=== PATIENT | female | born 2000 | race Caucasian/White ===

== ENCOUNTER 2023-09-09 22:34 | Inpatient (IN) | payer OTHER ==
[~2023-09-09] VITALS: Ht 167.6 cm; Wt 64.9 kg
[2023-09-09] MEDS ORDERED: NS 1,000 ML IV ONE (23:05)
[2023-09-09] MEDS ORDERED: CHARCOAL ACTIVATED LIQUID 25GM/120ML BTL PO ONE (23:05)
[2023-09-09] MEDS ORDERED: SODIUM BICARBONATE 8.4% INJ 50ML SYRINGE IV ONE (23:05)
[2023-09-09 23:33] LABS: VENOUS BASE EXCESS -0.7 (-2.0-2.0); VENOUS HCO3 26.5 MMOL/L (23.0-27.0); VENOUS O2 SATURATION 75.5 % (60.0-80.0); VENOUS PARTIAL PRESSURE CO2 54.5 mmHg (38.0-50.0); VENOUS PARTIAL PRESSURE O2 43.1 mmHg (30.0-50.0); VENOUS PH 7.305 UNITS (7.330-7.430); VENOUS STANDARD HCO3 23.4 MMOL/L; VENOUS TOTAL CO2 28.2 MMOL/L (24.0-28.0)
[2023-09-10 00:07] LABS: AMPHETAMINES LEVEL URINE NEGATIVE (NEGATIVE); BARBITURATES URINE NEGATIVE (NEGATIVE); BENZODIAZEPINES URINE NEGATIVE (NEGATIVE); CANNABINOIDS URINE NEGATIVE (NEGATIVE); COCAINE METABOLITE URINE NEGATIVE (NEGATIVE); METHADONE URINE NEGATIVE (NEGATIVE); OPIATES URINE NEGATIVE (NEGATIVE); PHENCYCLIDINE URINE NEGATIVE (NEGATIVE)
[2023-09-10 00:09] LABS: ETHYL ALCOHOL (ETHANOL) 0.004 % (0.000-0.010)
[2023-09-10 00:11] LABS: SALICYLATE LEVEL < 3.0 MG/DL (<30)
[2023-09-10 00:12] LABS: BASO # 0.1 10^3/uL (0.0-0.2); BASO % 1.1 % (0.0-1.0); EOS # 0.1 10^3/uL (0.0-0.5); EOS % 1.1 % (0.0-3.0); HEMOGLOBIN 12.7 g/dl (12.0-15.5); LYMPH # 3.6 10^3/uL (1.5-5.0); LYMPH % 38.7 % (24.0-44.0); MEAN CORPUSCULAR HEMOGLOBIN 27.9 pg (27.0-33.0); MEAN CORPUSCULAR HGB CONC 31.8 g/dl (32.0-36.5); MEAN CORPUSCULAR VOLUME 87.9 fl (80.0-96.0); MONO # 0.8 10^3/uL (0.0-0.8); MONO % 8.4 % (2.0-8.0); NEUTROPHILS # 4.6 10^3/uL (1.5-8.5); NEUTROPHILS % 49.4 % (36.0-66.0); PLATELET COUNT, AUTOMATED 329 10^3/uL (150-450); RED BLOOD COUNT 4.55 10^6/uL (4.00-5.40); WHITE BLOOD COUNT 9.3 10^3/uL (4.0-10.0)
[2023-09-10 00:15] LABS: ALBUMIN 4.5 G/DL (3.2-5.2); ALKALINE PHOSPHATASE 62 U/L (46-116); ALT/SGPT 17 U/L (7.0-40); AST/SGOT 15 U/L (<34); BILIRUBIN,DIRECT 0.2 MG/DL (<0.4); BILIRUBIN,TOTAL 0.4 MG/DL (0.3-1.2); BLOOD UREA NITROGEN 12 MG/DL (9-23); CALCIUM LEVEL 9.6 MG/DL (8.5-10.1); CARBON DIOXIDE LEVEL 26 MMOL/L (20-31); CHLORIDE LEVEL 105 MMOL/L (98-107); CPK CREATINE PHOSPHOKINASE 106 U/L (34-145); CREATININE FOR GFR 0.84 MG/DL (0.55-1.30); GLUCOSE, FASTING 91 MG/DL (60-100); POTASSIUM SERUM 4.7 MMOL/L (3.5-5.1); SODIUM LEVEL 142 MMOL/L (136-145); THYROID STIMULATING HORMONE 4.501 uIU/ML (0.48-4.17); TOTAL PROTEIN 7.3 G/DL (5.7-8.2)
[2023-09-10 00:16] LABS: RSV AMPLIFICATION NEGATIVE (NEGATIVE)
[2023-09-10 00:17] LABS: HCG, SERUM QUALITATIVE NEGATIVE (NEGATIVE)
[2023-09-10 00:41] LABS: OSMOLALITY SERUM 293 MOSM/KG (275-295)
[2023-09-10] MEDS ORDERED: HOME MED LIST COMPLETE! XX SCH (06:25)
[2023-09-10] MEDS ORDERED: traZODone 50 MG TAB PO PRN (09:20)
[2023-09-10] MEDS ORDERED: MOM 30ML SUSPENSION UDC PO PRN (09:20)
[2023-09-10] MEDS ORDERED: diphenhydrAMINE 25MG CAP PO PRN (09:20)
[2023-09-10] MEDS ORDERED: IBUPROFEN 400MG TAB PO PRN (09:20)
[2023-09-10] MEDS ORDERED: MAALOX 30 ML SUSP *UDC PO PRN (09:20)
[2023-09-10 14:03] VITALS: BP 144/93; TEMP 97.9; O2SAT 99
[2023-09-10 18:07] VITALS: BP 132/71; TEMP 98.2; O2SAT 98
[2023-09-11 06:34] VITALS: BP 141/80; TEMP 97.2; O2SAT 95
[2023-09-11] MEDS ORDERED: INFLUENZA QUADRIVALENT PF VACCINE 0.5ML SYRINGE IM.IMMUN ONE (12:00)
[2023-09-11 18:10] VITALS: BP 112/71; TEMP 98
[2023-09-12 06:19] VITALS: BP 121/58; TEMP 97.9; O2SAT 99
[2023-09-12 18:22] VITALS: BP 139/78; TEMP 98.6; O2SAT 99
[2023-09-13 06:53] VITALS: BP 121/67; TEMP 98.8; O2SAT 98
== END 2023-09-13 11:50 | disposition home or self-care (01) | DRG 882 ==
LOC: M ED 22:34 → M ED INP 09-10 09:17 → M PSY 09-10 13:58
PROVIDERS: ADMIT Student in an Organized Health Care Education/Training Program; ATTEND Student in an Organized Health Care Education/Training Program
DX: F43.25 Adjustment disorder with mixed disturbance of emotions and conduct (principal); Z81.8 Family history of other mental and behavioral disorders; Z91.51 Personal history of suicidal behavior; Z91.52 Personal history of nonsuicidal self-harm; F32.A Depression, unspecified; F41.9 Anxiety disorder, unspecified; J45.909 Unspecified asthma, uncomplicated; Z63.8 Other specified problems related to primary support group

== ENCOUNTER → 2023-12-06 | Outpatient (REF) | payer OTHER ==
[2023-12-06 16:55] LABS: CHLAMYDIA DNA AMPLIFICATION NEGATIVE (NEGATIVE); GC DNA AMPLIFICATION NEGATIVE (NEGATIVE)
== END ==
LOC: M SFHCWAGY 13:12
PROVIDERS: ATTEND Obstetrics & Gynecology
DX: Z11.3 Encounter for screening for infections with a predominantly sexual mode of transmission (principal); Z12.4 Encounter for screening for malignant neoplasm of cervix
CPT/HCPCS: 87661; 87810; 87850; G0123